=== PATIENT | female | born 1965 | race Caucasian/White ===

== ENCOUNTER → 2024-04-12 09:00 | Outpatient (REF) | payer OTHER, SELFPAY | LOC: HWRCS 09:00 | PROVIDERS: ATTENDING PHYSICIAN Internal Medicine Cardiovascular Disease; FAMILY PHYSICIAN Family Medicine | DX: R03.0 Elevated blood-pressure reading, without diagnosis of hypertension (principal) | CPT/HCPCS: 93306 ==

== ENCOUNTER 2024-05-17 06:26 | Day surgery (SDC) | payer OTHER, SELFPAY ==
--- NOTE | 2024-05-03 15:38 | VNURNOTE ---
Patient is scheduled for an elective R VIJAY on 05/17/24- she is a same day patient with Dr Cool. Spoke with patient prior to surgery. Introduced role of [facility] Liaison. Patient reports that she lives with her spouse and children in a MULTI story
home.
There is 1 step to enter and a flight of steps to the second floor.
There is a powder room on the entry level account representative and a first floor set up with bed on first floor. She has a raised toilet seat, cane and rolling walker.
PCP is Dr Lesia Maldonado.
Discussed [facility] joint protocol and post surgical plans.
Reviewed that she will have VN services initially and will then start outpatient PT.
Patient will go to [facility] [place] after [facility]. She will schedule outpt PT for 05/22.
Patient is in agreement with plan and states that her spouse will be home with her. Advised to bring RW day of surgery. Referral placed in [facility].
Plan: [facility] per [facility] joint protocol then outpt PT on 05/22
[2024-05-17] VITALS (18 sets, daily range): BP systolic 93–140; BP diastolic 38–80; PULSE 62; O2SAT 99; BMI 40.2
[2024-05-17] MEDS: CELEBREX 200 MG PO (07:43)
[2024-05-17] MEDS: TYLENOL 650 MG PO (07:43)
--- NOTE | 2024-05-17 08:15 | W.DS.TRANS ---
DC Summary - Ball Sorter
-
Discharge Instructions:
Discharge Diagnosis/Procedures R VIJAY Dr. Cool 05/17/24
Diet As tolerated
Activity With Walker
Driving Restrictions No driving
Bathing Restrictions OK to Shower
Instructions:
Stand-Alone Forms: SDS Total Hip and Knee D/C
Changes to Home Medications: Yes
Discharge Medications:
DC Medications w/original date entered in [employer]
levothyroxine 50 mcg tablet 50 mcg PO DAILY 11/20/17
atorvastatin 20 mg tablet 20 mg PO HS 05/11/24
calcium carbonate (Tums) 200 mg PO PRN PRN GERD 05/11/24
cholecalciferol (vitamin D3) 125 mcg (5,000 unit) tablet (Vitamin D3) 250 mcg PO DAILY 05/11/24
guaifenesin 600 mg tablet, extended release 12 hr (Mucinex) 600 mg PO PRN PRN congestion 05/11/24
multivitamin with minerals-folic acid 0.4 mg tablet (One-A-Day Women's 50 Plus) 1 tab PO DAILY 05/11/24
mupirocin 2 % topical ointment 1 applic topical BID 05/11/24
omega 4-opi-gdy-fish oil 1,000 mg (120 mg-180 mg) capsule (Fish Oil) 2 cap PO DAILY 05/11/24
tirzepatide (weight loss) 5 mg/0.5 mL subcutaneous solution (Zepbound) 5 mg SC QWEEK Weight Loss 05/11/24
Saccharomyces boulardii 250 mg capsule (Florastor) 250 mg PO BID #1 cap 05/17/24
acetaminophen 325 mg tablet (Tylenol) 650 mg (2 x 325 mg) PO QID #1 tab 05/17/24
aspirin 325 mg tablet 325 mg PO DAILY blood clot prevention #1 tab 05/17/24
cefadroxil 500 mg capsule 500 mg PO BID infection prevention #14 caps 05/17/24
celecoxib 100 mg capsule 100 mg PO BID Anti-inflammatory #14 caps 05/17/24
dexamethasone 4 mg tablet 4 mg PO BID inflammation #6 tabs 05/17/24
docusate sodium 100 mg capsule (Colace) 100 mg PO BID stool softner #1 cap 05/17/24
magnesium hydroxide 400 mg/5 mL oral suspension (Milk of Magnesia) 30 ml PO HS PRN Constipation #1 mL 05/17/24
ondansetron 4 mg disintegrating tablet 4 mg PO Q6H PRN n/v #20 tabs 05/17/24
oxycodone 5 mg tablet 5 mg PO Q6H PRN 1 tab moderate pain, 2 tabs severe pain #30 tabs 05/17/24
sennosides 8.6 mg tablet (Senokot) 17.2 mg (2 x 8.6 mg) PO BID laxative #2 tabs 05/17/24
Home Medication Changes
Saccharomyces boulardii 250 mg capsule (Florastor) 250 mg PO BID #1 cap 05/17/24
acetaminophen 325 mg tablet (Tylenol) 650 mg (2 x 325 mg) PO QID #1 tab 05/17/24
aspirin 325 mg tablet 325 mg PO DAILY blood clot prevention #1 tab 05/17/24
cefadroxil 500 mg capsule 500 mg PO BID infection prevention #14 caps 05/17/24
celecoxib 100 mg capsule 100 mg PO BID Anti-inflammatory #14 caps 05/17/24
dexamethasone 4 mg tablet 4 mg PO BID inflammation #6 tabs 05/17/24
docusate sodium 100 mg capsule (Colace) 100 mg PO BID stool softner #1 cap 05/17/24
magnesium hydroxide 400 mg/5 mL oral suspension (Milk of Magnesia) 30 ml PO HS PRN Constipation #1 mL 05/17/24
ondansetron 4 mg disintegrating tablet 4 mg PO Q6H PRN n/v #20 tabs 05/17/24
oxycodone 5 mg tablet 5 mg PO Q6H PRN 1 tab moderate pain, 2 tabs severe pain #30 tabs 05/17/24
sennosides 8.6 mg tablet (Senokot) 17.2 mg (2 x 8.6 mg) PO BID laxative #2 tabs 05/17/24
Pending Results: No
[2024-05-17] MEDS: NORMOSOL-R/PLASMALYTE-A 1000 IV (08:40)
[2024-05-17 09:43] LABS: Glycohemoglobin (HgbA1c) 5.1 % (4.0-5.6)
[2024-05-17] MEDS: DEMEROL 12.5 MG IV (11:03)
[2024-05-17] MEDS: ROXICODONE 5 MG PO (11:52)
[2024-05-17] MEDS: ZOFRAN 4 MG IV (13:30)
[2024-05-17] MEDS: ANCEF 5 IV (13:31)
== END 2024-05-17 14:50 | disposition home or self-care (01) ==
LOC: SDS 06:26
PROVIDERS: ATTENDING PHYSICIAN Orthopaedic Surgery; FAMILY PHYSICIAN Family Medicine
PROC: 0SR90JZ Replacement of Right Hip Joint with Synthetic Substitute, Open Approach (ICD-10-PCS; 2024-05-17)
DX: M16.11 Unilateral primary osteoarthritis, right hip (principal); E66.01 Morbid (severe) obesity due to excess calories
CPT/HCPCS: 27130; 73502; 83036; 87070; 97162; 97530; C1776